=== PATIENT | female | born 1940 | race Caucasian/White ===

== ENCOUNTER 2024-11-07 10:24 | Outpatient (CLI) | payer MEDICARE, OTHER, SELFPAY | END 2024-11-07 10:25 | disposition home or self-care (01) | LOC: INJ CL 10:31 | PROVIDERS: PCP Internal Medicine; Visit Provider Family Medicine | DX: M16.11 Unilateral primary osteoarthritis, right hip (principal); M25.511 Pain in right shoulder | CPT/HCPCS: 20610; 77002; J2795; Q9966 ==